=== PATIENT | male | born 1955 | race Caucasian/White ===

== ENCOUNTER 2025-05-13 13:55 | Emergency (ER) | payer OTHER, SELFPAY ==
[2025-05-13] VITALS (7 sets, daily range): BP systolic 113–129; BP diastolic 58–115; PULSE 62–131; RESP 12–22; TEMP 36.5–37.5; O2SAT 88–98; BMI 29.2
--- NOTE | 2025-05-13 14:12 | EDS_ITS ---
HPI History of Present Illness Chief Complaint: Syncope Narrative Narrative: 69-year-old male past medical history of DVT on Eliquis, hypothyroidism and hypertension presents with syncopal episode that he experienced today. He states that he did not eat breakfast or lunch. He was also cooking chicken over a hot grill outside today and 80 degree weather. He states the last thing he remembers that he was cleaning up, and the next thing he realized is that a police man was waking him up. He may have had a syncopal episode for a minute or 2. He now complains of slight headache, but denies any prodromal chest pain or shortness of breath. He feels back to baseline. Denies any neck pain, no injury from his fall. He denies history of diabetes. [facility] Medical History Hypercholesteremia Hypothyroid DVT (deep venous thrombosis) Hypertension Home Medications ?Medication ?Instructions ?Recorded ?Last Taken ?Type apixaban 5 mg tablet (Eliquis) 5 mg PO BID 05/13/25 Un known History levothyroxine 25 mcg tablet 25 mcg PO 05/13/25 Unknown History losartan 50 mg-hydrochlorothiazide 1 tab PO DAILY bloo d pressure 05/13/25 Unknown History 12.5 mg tablet pantoprazole 40 mg tablet,delayed 40 mg PO DAILY 05/13 Unknown History release Allergy/AdvReac Type Severity Reaction Status Date / Time lisinopril Allergy Severe Other Verified 05/13/25 13:58 Surgical History Hx of hernia repair Social History Smoking Status: Never smoker ROS ROS ED ROS Narrative Review of systems positive for syncopal episode. Now has slight headache. No p rodromal chest pain or shortness of breath. Syncopal episode only for few minutes. Denies injury from fall. EXAM Physical Exam Narrative Exam Narrative: GCS 15. ABCs intact. PERRL, EOMI. Neck soft and supple without vertebral point tenderness or bony step-off. Cardiovascular examination reveals a regular tachycardia. Lungs are clear to auscultation bilaterally. Abdomen is soft and nontender with normoactive bowel sounds. No guarding or rebound. Neurological examination shows him to be awake, alert, oriented x 3. Able to raise arms above head without difficulty. Moves all extremities. Const Vital Signs: 05/13/25 13:58 05/13/25 14:05 05/13/25 14:56 Temperature 99.5 F H Temperature Source Temporal Pulse Rate 131 H 98 Respiratory Rate 18 22 H Respiratory Effort Normal Non-Labored Respiratory Pattern Tachypnea Blood Pressure 129/115 H 126/70 H Blood Pressure Mean 119 88 Pulse Ox 88 90 Oxygen Delivery Method Room Air Room Air 05/13/25 15:00 05/13/25 16:00 Temperature Temperature Source Pulse Rate 97 85 Respiratory Rate 20 H 20 H Respiratory Effort Respiratory Pattern Blood Pressure 126/70 H 116/72 Blood Pressure Mean 88 86 Pulse Ox 90 95 Oxygen Delivery Method Room Air Room Air MDM MDM MDM Narrative Medical decision making narrative: Differential diagnosis includes but not limited to intracranial hemorrhage status post fall versus vasovagal syncope versus heatstroke versus dehydration versus other electrolyte abnormality. Patient will be bolused 2 L intravenously. He has slight elevation of his temperature at 99.5. I will obtain a CT of the brain to rule out intracranial hemorrhage. EKG was obtained and interpreted by myself independently as sinus tachycardia at [address] changes. No STEMI. I reviewed patient's laboratory work and he has slightly elevated white count of 11.9 which I think is nonspecific, hemoglobin normal at 15.7 and hematocrit 44.2, no anemia, platelet count normal at 289. Electrolyte panel is significant for BUN of 32 and creatinine elevated 2.29. There is no prior with which to compare. Glucose 128. AST slightly elevated at 45 which is nonspecific. I do think that he is probably profoundly dehydrated. He is on his second bolus of normal saline and his heart rate is currently down in the 90s. He is not hypotensive. I reviewed the radiology report of the CT of the brain. There is no evidence of acute process. Patient states he is feeling improved. He feels well enough for discharge. I will ensure that he can urinate by ordering a dipstick urine. On repeat examination at approximately 1635, he does not have the urge to urinate as of yet. He will be started on normal saline at 250 mL/h. I will recheck a BMP and sign the patient out to Dr. Woods to ensure that his c reatinine is improving and that he has urinated. He was told that if he does not urinate he will most likely need at least observation for decreased urine output and acute kidney injury. Disposition is pending. He is currently off oxygen and satting 95% on room air and once again states he feels significantly improved. History & Record Review Discussion w/independent historian: Patient Additional record(s) reviewed:: No prior records (No prior ED visit) Lab Data Attestation: I reviewed the patient's lab results. Labs: Laboratory Results - last 24 hr 05/13/25 14:15 WBC 11.9 H RBC 4.90 Hgb 15.7 Hct 44.2 MCV 90.2 MCH 32.0 MCHC 35.5 RDW Std Deviation 44.1 H RDW Coeff of James 13.3 Plt Count 289 MPV 10.3 Immature Gran % (Auto) 0.400 Neut % (Auto) 82.5 H Lymph % (Auto) 11.2 L [place] % (Auto) 4.9 Eos % (Auto) 0.5 Baso % (Auto) 0.5 Absolute Neuts (auto) 9.8 H Absolute Lymphs (auto) 1.33 Nucleated RBC % 0 Sodium 139 Potassium 4.7 Chloride 101 Carbon Dioxide 15.8 L Anion Gap 22 H BUN 32 H Creatinine 2.29 H Estim Creat Clear Calc 29.75 L Est GFR (MDRD) Non-Af 30 L BUN/Creatinine Ratio 13.8 Glucose 128 H Calcium 10.7 Total Bilirubin 1.24 AST 45 H ALT 28 Alkaline Phosphatase 66 Total Protein 8.5 H Albumin 4.9 H Globulin 3.6 Albumin/Globulin Ratio 1.3 Radiography Diagnostic Testing: Clinical Impression(s) from Imaging Studies Brain CT 05/13/25 14:30 IMPRESSION: CHRONIC CHANGES. NO ACUTE FINDINGS. Reading Location: [facility]- Discharge Plan Triage Chief Complaint: Syncope ED Provider: Asad Cohen Dx/Rx/DC Orders Clinical Impression: Syncope, Heat exhaustion, Acute kidney injury, Dehydration Instructions: Renal Failure: Acute, ED Dehydration (Adult), ED Heat Exhaustion, ED Fainting, Uncertain Cause Prescriptions: No Action levothyroxine 25 mcg tablet 25 mcg PO pantoprazole 40 mg tablet,delayed release (DR/EC) 40 mg PO DAILY losartan-hydrochlorothiazide 50-12.5 mg tablet 1 tab PO DAILY Eliquis 5 mg tablet 5 mg PO BID Primary Care Provider: Mariel Morelos Referrals: Mariel Morelos MD [Primary Care Provider, Internal Medicine] - 3-5 Days Activity Restrictions/Additional Instructions: Drink plenty of oral fluids, especially water. Follow-up with your primary care provider in the next 3 to 5 days. She may need to check your creatinine or your kidney function. Return to the emergency department with decreased urine output, repeated syncope, new or worsening symptoms. Print Language: Colombian Disposition Disposition: Home, Self Care
[2025-05-13 14:24] LABS: Hematocrit 44.2 % (40-54); Hemoglobin 15.7 g/dL (13.0-16.5); Immature Granulocytes Count 0.050 X10^3/uL (0.0-0.0); Mean Corp Hgb Conc 35.5 g/dL (32-36); Mean Corpuscular Volume 90.2 fL (80-94); Mean Platelet Vol. 10.3 fl (6.2-12.0); NRBC Flagged by Analyzer 0 % (0-5); Platelet Count 289 K/mm3 (150-450); RBC Distribution Width CV 13.3 % (11.6-14.6); RBC Distribution Width SD 44.1 fl (35.1-43.9); Red Blood Count 4.90 M/mm3 (4.6-6.2); White Blood Count 11.9 K/mm3 (4.4-11.0)
--- NOTE | 2025-05-13 14:30 | CT_ITS ---
PROCEDURE: BRAIN/HEAD WITHOUT CONTRAST 05/13/2025 REASON FOR EXAM: HEAD INJURY ON ANTICOAGULANT Unresponsive. TECHNIQUE: Procedure Code: CTBR Modality: CT Procedure: BRAIN/HEAD WITHOUT CONTRAST Coronal and Sagittal reconstruction series were provided. One or more dose reduction techniques were used (e.g., Automated exposure control, adjustment of the mA and/or kV according to patient size, use of iterative reconstruction technique. RADIATION DOSE SUMMARY: CTDlvol: 47.06 mGy DLP: 907.97 mGycm COMPARISON: None FINDINGS: Brain: Low density in the periventricular white matter suggests mild chronic small vessel ischemic changes. CSF Spaces: Mild generalized cerebral atrophy Sinuses/Mastoids: Clear at visualized levels Bones: No bony abnormality. CT/Brain/Head without Contrast IMPRESSION: CHRONIC CHANGES. NO ACUTE FINDINGS. Reading Location: [place] [id number]
[2025-05-13] MEDS: 0.9% Normal Saline (1000mL) 1,000 ML 999 ML IV ×2 (14:45→14:58)
[2025-05-13 14:55] LABS: AST(SGOT) 45 U/L (<=37); Alanine Aminotransfer ALT/SGPT 28 U/L (<=46); Albumin, Serum 4.9 g/dL (3.4-4.8); Alkaline Phosphatase 66 U/L (40-129); Anion Gap 22 (5-15); BUN 32 mg/dL (4-19); BUN/Creat Ratio 13.8 RATIO (10-20); Calcium,Total 10.7 mg/dL (7.6-11.0); Carbon Dioxide 15.8 mmol/L (21.0-32.0); Chloride 101 mmol/L (98-108); Estimated Creatinine Clearance 29.75 ml/min (50-250); Globulin 3.6 g/dL (2.2-4.2); Glucose 128 mg/dL (70-99); Potassium 4.7 mmol/L (3.3-5.1)
--- NOTE | 2025-05-13 15:44 | EKG12_ITS ---
Test Reason : SYNCOPE Blood Pressure : */* mmHG Vent. Rate : 129 BPM Atrial Rate : 129 BPM P-R Int : 150 ms QRS Dur : 84 ms QT Int : 314 ms P-R-T Axes : 50 -45 39 degrees QTcB Int : 460 ms Sinus tachycardia Left anterior fascicular block Abnormal ECG Confirmed by MIGUELITO CARVAJAL, KELLY ([id number]), assistant production editor ERVIN RAO ([id number]) on 05/16/2025 8:09:21 AM Referred By: LUIS/DULCE MARIA Confirmed By: KELLY FARLEY MD
[2025-05-13] MEDS: 0.9% Normal Saline (1000mL) 1,000 ML 250 ML IV (17:49)
[2025-05-13 18:12] LABS: Anion Gap 14 (5-15); BUN 32 mg/dL (4-19); BUN/Creat Ratio 16.6 RATIO (10-20); Calcium,Total 8.5 mg/dL (7.6-11.0); Carbon Dioxide 17.9 mmol/L (21.0-32.0); Chloride 107 mmol/L (98-108); Estimated Creatinine Clearance 35.66 ml/min (50-250); Glucose 105 mg/dL (70-99); Potassium 4.6 mmol/L (3.3-5.1)
[2025-05-13 19:36] LABS: Color, Urine Yellow (Yellow); Glucose, Dipstick Normal (Normal); Ketone-Dipstick 15 mg/dl (Negative); Leukocyte Esterase-Dipstick Negative /ul (Negative); Nitrite-Dipstick Negative (Negative); Occult Blood-Urine 150 /ul (Negative); Protein-Dipstick 30 mg/dl (Negative); Specific Gravity, Urine 1.015 (1.002-1.030); Urine Bilirubin Dipstick Negative (Negative)
--- NOTE | 2025-05-13 20:04 | EDS_ITS ---
HPI History of Present Illness Chief Complaint: Syncope [facility] Medical History Hypercholesteremia Hypothyroid DVT (deep venous thrombosis) Hypertension Home Medications ?Medication ?Instructions ?Recorded ?Last Taken ?Type apixaban 5 mg tablet (Eliquis) 5 mg PO BID 05/13/25 Un known History levothyroxine 25 mcg tablet 25 mcg PO 05/13/25 Unknown History losartan 50 mg-hydrochlorothiazide 1 tab PO DAILY bloo d pressure 05/13/25 Unknown History 12.5 mg tablet pantoprazole 40 mg tablet,delayed 40 mg PO DAILY 05/13 Unknown History release Allergy/AdvReac Type Severity Reaction Status Date / Time lisinopril Allergy Severe Other Verified 05/13/25 13:58 Surgical History Hx of hernia repair Social History Smoking Status: Never smoker EXAM Physical Exam Const Vital Signs: 05/13/25 13:58 05/13/25 14:05 05/13/25 14:56 Temperature 99.5 F H Temperature Source Temporal Pulse Rate 131 H 98 Respiratory Rate 18 22 H Respiratory Effort Normal Non-Labored Respiratory Pattern Tachypnea Blood Pressure 129/115 H 126/70 H Blood Pressure Mean 119 88 Pulse Ox 88 90 Oxygen Delivery Method Room Air Room Air 05/13/25 15:00 05/13/25 16:00 05/13/25 17:00 Temperature Temperature Source Pulse Rate 97 85 68 Respiratory Rate 20 H 20 H 12 Respiratory Effort Respiratory Pattern Blood Pressure 126/70 H 116/72 129/66 H Blood Pressure Mean 88 86 87 Pulse Ox 90 95 97 Oxygen Delivery Method Room Air Room Air Room Air 05/13/25 19:35 Temperature Temperature Source Pulse Rate 62 Respiratory Rate 14 Respiratory Effort Respiratory Pattern Blood Pressure 128/73 H Blood Pressure Mean 91 Pulse Ox 96 Oxygen Delivery Method Room Air [facility] MDM Lab Data Labs: Laboratory Results - last 24 hr 05/13/25 05/13/25 05/13/25 14:15 17:28 19:21 WBC 11.9 H RBC 4.90 Hgb 15.7 Hct 44.2 MCV 90.2 MCH 32.0 MCHC 35.5 RDW Std Deviation 44.1 H RDW Coeff of James 13.3 Plt Count 289 MPV 10.3 Immature Gran % (Auto) 0.400 Neut % (Auto) 82.5 H Lymph % (Auto) 11.2 L [place] % (Auto) 4.9 Eos % (Auto) 0.5 Baso % (Auto) 0.5 Absolute Neuts (auto) 9.8 H Absolute Lymphs (auto) 1.33 Nucleated RBC % 0 Sodium 139 139 Potassium 4.7 4.6 Chloride 101 107 Carbon Dioxide 15.8 L 17.9 L Anion Gap 22 H 14 BUN 32 H 32 H Creatinine 2.29 H 1.91 H Estim Creat Clear Calc 29.75 L 35.66 L Est GFR (MDRD) Non-Af 30 L 37 L BUN/Creatinine Ratio 13.8 16.6 Glucose 128 H 105 H Calcium 10.7 8.5 Total Bilirubin 1.24 AST 45 H ALT 28 Alkaline Phosphatase 66 Total Protein 8.5 H Albumin 4.9 H Globulin 3.6 Albumin/Globulin Ratio 1.3 Urine Color Yellow Urine Clarity Clear Urine pH 6.0 Ur Specific [place] 1.015 Urine Protein 30 H Urine Glucose (UA) Normal Urine Ketones 15 H Urine Occult Blood 150 H Urine Nitrite Negative Urine Bilirubin Negative Urine Urobilinogen Normal Ur Leukocyte Esterase Negative Radiography Diagnostic Testing: Clinical Impression(s) from Imaging Studies Brain CT 05/13/25 14:30 IMPRESSION: CHRONIC CHANGES. NO ACUTE FINDINGS. Reading Location: [place] [id number] Discharge Plan Triage Chief Complaint: Syncope ED Provider: Asad Cohen Dx/Rx/DC Orders Clinical Impression: Syncope, Heat exhaustion, Acute kidney injury, Dehydration Instructions: Renal Failure: Acute, ED Dehydration (Adult), ED Heat Exhaustion, ED Fainting, Uncertain Cause Prescriptions: No Action levothyroxine 25 mcg tablet 25 mcg PO pantoprazole 40 mg tablet,delayed release (DR/EC) 40 mg PO DAILY losartan-hydrochlorothiazide 50-12.5 mg tablet 1 tab PO DAILY Eliquis 5 mg tablet 5 mg PO BID Primary Care Provider: Mariel Morelos Referrals: Mariel Morelos MD [Primary Care Provider, Internal Medicine] - 3-5 Days Activity Restrictions/Additional Instructions: Drink plenty of oral fluids, especially water. Follow-up with your primary care provider in the next 3 to 5 days. She may need to check your creatinine or your kidney function. Return to the emergency department with decreased urine output, repeated syncope, new or worsening symptoms. Print Language: Afghan Disposition Disposition: Home, Self Care
== END 2025-05-13 20:22 | disposition home or self-care (01) ==
PROVIDERS: Emergency Provider Emergency Medicine; PCP Internal Medicine; Visit Provider Emergency Medicine
DX: E86.0 Dehydration (principal); R55 Syncope and collapse; N17.9 Acute kidney failure, unspecified; T67.5XXA Heat exhaustion, unspecified, initial encounter; I10 Essential (primary) hypertension; E78.00 Pure hypercholesterolemia, unspecified; Z86.718 Personal history of other venous thrombosis and embolism; Z79.01 Long term (current) use of anticoagulants; Z79.899 Other long term (current) drug therapy; E03.9 Hypothyroidism, unspecified; Z79.890 Hormone replacement therapy
CPT/HCPCS: 70450; 80048; 80053; 81002; 85025; 93005; 96360; 96361; 99285